=== PATIENT | female | born 1965 | race Caucasian/White ===

== ENCOUNTER → 2016-07-07 | Outpatient (CLI) | payer MEDICARE | LOC: CT 13:00 | DX: C34.11 Malignant neoplasm of upper lobe, right bronchus or lung (principal); C77.1 Secondary and unspecified malignant neoplasm of intrathoracic lymph nodes | CPT/HCPCS: 36415; 71260; 82565; 84520; J1642; J7050; Q9962 ==

== ENCOUNTER → 2016-07-23 | Outpatient (CLI) | payer MEDICARE, OTHER | LOC: US 09:40 | DX: R59.0 Localized enlarged lymph nodes (principal) | CPT/HCPCS: 76881; 88341; 88342 ==

== ENCOUNTER 2020-03-15 17:51 | Emergency (ER) | payer MEDICARE, OTHER ==
[~2020-03-15 17:51] MED LIST: ALDACTONE25 MG PO; B-1100 MG PO; DAILY MULTIPLE1 EAC1 PO; DOXYCYCLINE HY100 M2 PO; DOXYCYCLINE HY100 MG PO; FOLIC ACID 1 MG1 MG PO; IPRAT-ALBUT 0.5-3 ML NEB; KEPPRA500 MG PO; LIPITOR20 MG PO; LOPRESSOR 25 MG25 MG PO; MEDROL DOSEPAK 24 MG PO; NORVASC5 MG PO; OMNICEF 300 MG300 MG PO; PREDNISONE 20 M20 MG PO; PROVENTIL HFA6.7 GM INH; SPIRIVA RESPIMAT4 GM INH; SYMBICORT 160-1 INHA INH; TENORMIN25 MG PO
[2020-03-15 19:08] LABS: HEMOGLOBIN 12.1 gm/dl (12.3-15.3); RED BLOOD COUNT 4.82 M/UL (4.00-5.10)
[2020-03-15 19:27] LABS: BUN/CREATININE RATIO 10 (0-10)
[2020-03-15] MEDS ORDERED: KEPPRA500 MG PO (20:12)
[2020-03-15] MEDS ORDERED: NORVASC5 MG PO (20:12)
== END 2020-03-15 22:25 | disposition home or self-care (01) ==
LOC: ER1 17:51
PROVIDERS: Physician Assistant
DX: R56.9 Unspecified convulsions (principal); R06.2 Wheezing; I10 Essential (primary) hypertension; J44.9 Chronic obstructive pulmonary disease, unspecified; Z88.1 Allergy status to other antibiotic agents; Z79.899 Other long term (current) drug therapy; Z76.0 Encounter for issue of repeat prescription
CPT/HCPCS: 70450; 71045; 80053; 80307; 81001; 82140; 82550; 82553; 82962; 83874; 84439; 84443; 84484; 85025; 87086; 96365; 99285; J1953

== ENCOUNTER 2020-03-18 23:52 | Emergency (ER) | payer MEDICARE, OTHER ==
[2020-03-19 00:40] LABS: HEMOGLOBIN 11.7 gm/dl (12.3-15.3); RED BLOOD COUNT 4.69 M/UL (4.00-5.10); WHITE BLOOD COUNT 10.5 K/UL (4.5-11.0)
[2020-03-19 00:54] LABS: BUN/CREATININE RATIO 9 (0-10)
[2020-03-19] MEDS ORDERED: PREDNISONE 20 M20 MG PO (01:33)
[2020-03-19] MEDS ORDERED: DOXYCYCLINE HY100 MG PO (01:33)
== END 2020-03-19 02:17 | disposition home or self-care (01) ==
LOC: ER1 23:52
PROVIDERS: Emergency Medicine
DX: J44.1 Chronic obstructive pulmonary disease with (acute) exacerbation (principal); F19.10 Other psychoactive substance abuse, uncomplicated; R41.82 Altered mental status, unspecified; I10 Essential (primary) hypertension; Z85.118 Personal history of other malignant neoplasm of bronchus and lung; Z98.890 Other specified postprocedural states; Z88.1 Allergy status to other antibiotic agents; Z88.2 Allergy status to sulfonamides; Z91.14 Patient's other noncompliance with medication regimen; Z20.822 Contact with and (suspected) exposure to COVID-19
CPT/HCPCS: 36600; 71045; 80053; 80307; 82550; 82553; 82803; 83605; 83690; 83735; 83874; 83880; 84100; 84484; 85025; 85610; 85730; 87040; 87635; 93005; 99285; G0480

== ENCOUNTER → 2020-04-18 | Outpatient (CLI) | payer MEDICARE, OTHER ==
[~2020-04-18] MED LIST changes: +ARISTADA IM; +ASPIRIN EC81 MG PO; +BUSPAR 10MG10 MG PO; +METOPROLOL SUCC50 MG PO; +MIRTAZAPINE15 MG PO; +PROTONIX 40 MG40 M1 PO
== END ==
LOC: HEART 5 14:12
DX: J44.9 Chronic obstructive pulmonary disease, unspecified (principal); R09.02 Hypoxemia; Z87.891 Personal history of nicotine dependence
CPT/HCPCS: 94010; 94729

== ENCOUNTER → 2020-05-06 | Outpatient (CLI) | payer MEDICARE, OTHER | LOC: CT 11:04 | DX: Z85.118 Personal history of other malignant neoplasm of bronchus and lung (principal); R91.1 Solitary pulmonary nodule; R09.02 Hypoxemia | CPT/HCPCS: 36415; 36600; 71260; 82565; 82803; Q9963 ==

== ENCOUNTER → 2020-06-12 | Outpatient (CLI) | payer MEDICARE, OTHER | LOC: EMI 10:33 | DX: R56.9 Unspecified convulsions (principal) | CPT/HCPCS: 70551 ==

== ENCOUNTER 2020-08-17 05:07 | Inpatient (IN) | payer MEDICARE, OTHER ==
[~2020-08-17] VITALS: Ht 157.5 cm; Wt 91.6 kg
[~2020-08-17 05:07] MED LIST changes: -ARISTADA IM; -ASPIRIN EC81 MG PO; -BUSPAR 10MG10 MG PO; -METOPROLOL SUCC50 MG PO; -MIRTAZAPINE15 MG PO; -PROTONIX 40 MG40 M1 PO
[2020-08-17 06:35] LABS: HEMOGLOBIN 10.4 gm/dl (12.3-15.3); RED BLOOD COUNT 3.6 M/UL (4.00-5.10); WHITE BLOOD COUNT 8.6 K/UL (4.5-11.0)
[2020-08-17 07:24] LABS: BUN/CREATININE RATIO 19 (0-10)
[2020-08-17] MEDS ORDERED: ASPIRIN EC81 MG PO (11:30)
[2020-08-17] MEDS ORDERED: BUSPAR 10MG10 MG PO (11:31)
[2020-08-17] MEDS ORDERED: METOPROLOL SUCC50 MG PO (11:32)
[2020-08-17] MEDS ORDERED: MIRTAZAPINE15 MG PO (11:33)
[2020-08-17] MEDS ORDERED: PROTONIX 40 MG40 M1 PO (11:33)
[2020-08-17] MEDS ORDERED: ARISTADA IM (11:36)
[2020-08-18 04:54] LABS: HEMOGLOBIN 10.1 gm/dl (12.3-15.3); RED BLOOD COUNT 3.55 M/UL (4.00-5.10)
[2020-08-18 04:59] LABS: WHITE BLOOD COUNT 5.5 K/UL (4.5-11.0)
[2020-08-18 05:06] LABS: BUN/CREATININE RATIO 23 (0-10)
[2020-08-19] MEDS ORDERED: PREDNISONE 20 M20 MG PO (14:12)
== END 2020-08-19 17:29 | disposition home or self-care (01) | DRG 189 ==
LOC: ER1 05:07 → CDU 08:53 → PROG CARE 11:09
PROVIDERS: Family Medicine; Physician Assistant; ADMIT Internal Medicine Infectious Disease
PROC: 5A09357 Assistance with Respiratory Ventilation, Less than 24 Consecutive Hours, Continuous Positive Airway Pressure (ICD-10-PCS; principal; 2020-08-18)
DX: J96.21 Acute and chronic respiratory failure with hypoxia (principal); J44.1 Chronic obstructive pulmonary disease with (acute) exacerbation; J44.0 Chronic obstructive pulmonary disease with (acute) lower respiratory infection; J96.22 Acute and chronic respiratory failure with hypercapnia; Z20.822 Contact with and (suspected) exposure to COVID-19; F17.210 Nicotine dependence, cigarettes, uncomplicated; F19.10 Other psychoactive substance abuse, uncomplicated; F10.10 Alcohol abuse, uncomplicated; G40.909 Epilepsy, unspecified, not intractable, without status epilepticus; G47.00 Insomnia, unspecified; E66.9 Obesity, unspecified; I10 Essential (primary) hypertension; G47.33 Obstructive sleep apnea (adult) (pediatric); E78.5 Hyperlipidemia, unspecified; J20.9 Acute bronchitis, unspecified; M10.9 Gout, unspecified; D64.9 Anemia, unspecified; M32.9 Systemic lupus erythematosus, unspecified; Z85.118 Personal history of other malignant neoplasm of bronchus and lung; Z90.2 Acquired absence of lung [part of]; Z90.49 Acquired absence of other specified parts of digestive tract; Z98.51 Tubal ligation status; Z98.891 History of uterine scar from previous surgery; Z86.73 Personal history of transient ischemic attack (TIA), and cerebral infarction without residual deficits; Z88.6 Allergy status to analgesic agent; Z88.1 Allergy status to other antibiotic agents; Z88.8 Allergy status to other drugs, medicaments and biological substances; Z82.49 Family history of ischemic heart disease and other diseases of the circulatory system; Z80.1 Family history of malignant neoplasm of trachea, bronchus and lung; Z80.6 Family history of leukemia; Z79.82 Long term (current) use of aspirin
CPT/HCPCS: 36415; 36600; 71045; 80048; 80053; 82550; 82553; 82803; 83874; 83880; 84484; 85025; 87040; 93005; 94640; 94660; 94664; 94760; 96374; 96375; 99285; J0696; J2930; U0002